=== PATIENT | female | born 1965 | race Caucasian/White ===

== ENCOUNTER 2018-07-15 09:59 | Emergency (ER) | payer OTHER ==
[2018-07-15 10:15] VITALS: O2SAT 99
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
[2018-07-15] MEDS ORDERED: Rocephin 1000 MG INJ IM ONE (10:30)
[2018-07-15] MEDS ORDERED: ZOFRAN ODT 4 MG PO ONE (10:30)
[2018-07-15] MEDS ORDERED: Hydromorphone 1 mg/ml Ampule IM ONE (10:30)
[2018-07-15] MEDS ORDERED: solu-MEDROL 125 MG IM ONE (10:31)
[2018-07-15] MEDS ORDERED: ZOFRAN ODT 4 MG ONE (10:37)
[2018-07-15] MEDS ORDERED: Hydromorphone 1 mg/ml Ampule ONE (10:37)
[2018-07-15] MEDS ORDERED: Rocephin 1000 MG INJ ONE (10:38)
[2018-07-15] MEDS ORDERED: solu-MEDROL 125 MG ONE (10:38)
[2018-07-15 11:28] VITALS: BP 137/88; PULSE 89
== END 2018-07-15 11:27 | disposition home or self-care (01) ==
LOC: ED 09:59
DX: K04.7 Periapical abscess without sinus (principal); R22.0 Localized swelling, mass and lump, head
CPT/HCPCS: 96372; 99284; J0696; J1170; J2930; Q0162

== ENCOUNTER 2019-06-07 06:04 | Day surgery (SDC) | payer OTHER ==
[2019-06-07] MEDS ORDERED: Lactated Ringers 1,000 ML IV SCH (06:30)
[2019-06-07] MEDS ORDERED: DIPRIVAN 200 MG/20 ML IV ONE ×2 (07:24→08:07)
[2019-06-07] MEDS ORDERED: Ketamine HCl 50 MG/ML ONE (07:25)
[2019-06-07 09:34] VITALS: BP 131/78; PULSE 90; O2SAT 98
--- NOTE | 2019-06-07 11:53 | OP ---
SURGERY DATE/TIME: 06/07/2019 0754 PREOPERATIVE DIAGNOSIS: Abdominal pain. POSTOPERATIVE DIAGNOSIS: Mild colitis in the ascending colon. PROCEDURE: Colonoscopy with cold forceps biopsy. SURGEON: Dr. Rothman. ANESTHESIA: Medications given by anesthesia department. HISTORY: The patient is a 53 year-old white female who presents now with abdominal pain. She has also noted change in her bowel habits. The patient had a CT scan recently to rule appendix which was essentially all negative. The patient was felt the need to have endoscopic evaluation. She was appraised of the risks of the procedure including the risk of perforation, phlebitis, untoward reaction to medication, bleeding and missed lesions. The patient verbalized her understanding and desired to have the procedure performed. DESCRIPTION OF PROCEDURE: The patient was given the medications by the anesthesia department. She had continuous pulse oximetry, ECG monitoring, intermittent blood pressure monitoring and tidal CO2 monitoring during the examination. She was placed in the left lateral decubitus position. A digital rectal examination was performed and revealed normal anal sphincter tone and no masses. The flexible Olympus pediatric colonoscope was used to intubate the rectum. A view of the colon was developed sequentially to the cecum including a short distance in the terminal ileum. Upon insertion and withdrawal was noted some erythema in the right side of the colon and this is biopsied using biopsy technique to rule out the presence of underlying colitis. The scope was removed from the patient who tolerated the procedure well and sent back to OP recovery in good condition. The prep was noted to be fair to good.
== END 2019-06-07 09:40 | disposition home or self-care (01) ==
LOC: SDC 06:04
PROVIDERS: ATTEND Family Medicine
DX: K52.9 Noninfective gastroenteritis and colitis, unspecified (principal)
CPT/HCPCS: 88305; J2704

== ENCOUNTER 2019-10-01 11:47 | Emergency (ER) | payer OTHER ==
[2019-10-01] MEDS ORDERED: BABY ASPIRIN 81 MG CHEW PO ONE (12:00)
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
[2019-10-01] MEDS ORDERED: Nitrostat 0.4 MG (ED) SL ONE ×2 (12:04→12:09)
[2019-10-01] MEDS ORDERED: BABY ASPIRIN 81 MG CHEW ONE (12:09)
[2019-10-01 12:12] VITALS: O2SAT 99
[2019-10-01] MEDS ORDERED: Zofran 4 MG/2 ML VIAL IV ONE (12:17)
[2019-10-01] MEDS ORDERED: Zofran 4 MG/2 ML VIAL ONE (12:18)
--- NOTE | 2019-10-01 12:27 | XRAY ---
Indication: Chest pain, short of breath, cough, and tachycardia. Comparison: December 05, 2017. Portable chest demonstrates new right mid to lower lung subsegmental atelectasis/scarring. Remaining heart and lungs normal. Bony thorax intact.
[2019-10-01] MEDS ORDERED: LOPRESSOR 5 MG/5 ML INJECTION IV ONE ×2 (12:30→12:56)
[2019-10-01] MEDS ORDERED: MORPHINE SULFATE 2 MG INJ IV ONE (12:34)
[2019-10-01] MEDS ORDERED: MORPHINE SULFATE 2 MG INJ ONE (12:56)
[2019-10-01 13:06] LABS: Absolute Neutrophil Ct (ANC) 5.49 (1.4-6.9); BASOPHIL % 0.3 % (0.0-0.4); Basophil (Absolute #) 0.03 (0-0.4); Eosinophil % 1.6 % (0.00-5.0); Eosinophil (Absolute #) 0.15 (0-0.5); Hematocrit 42.2 % (35-47); Hemoglobin 14.5 gm/dl (12.0-16.0); Lymphocyte (Absolute #) 3.37 (1.0-4.6); Lymphocytes % 35.3 % (24.0-44.0); Mean Cell Volume 89.4 fl (78-100); Mean Corpuscular Hemoglobin 30.7 pg (26-32); Mean Corpuscular Hgb Concent. 34.4 g/dl (32-36); Mean Platelet Volume 9.9 fl (6-9.5); Monocytes % 5.2 % (0.0-12.0); Neutrophil % 57.6 % (36.0-66.0); Platelet Count 333 K/mm3 (150-450); Red Blood Count 4.72 M/mm3 (4.1-5.4); Red Cell Distribution Width 12.9 % (11.5-14.0); White Blood Count 9.5 K/mm3 (4.0-10.5)
[2019-10-01 13:12] LABS: INR 1.03 (0.8-3.0); PROTIME 11.6 SECONDS (9.95-12.35)
[2019-10-01 13:26] LABS: ALKALINE PHOSPHATASE 126 U/L (38-126); ANION GAP 16.2 MEQ/L (5-15); BLOOD UREA NITROGEN 12 mg/dL (7-17); CHLORIDE 106 mmol/L (98-107); Calcium 9.7 mg/dL (8.4-10.2); Carbon Dioxide 26 mmol/L (22-30); Creatinine 1 0.56 mg/dL (0.52-1.04); Glucose 97 mg/dL (74-106); NT PRO BNP 34.3 pg/mL (0-900); Potassium 4.9 mmol/L (3.5-5.1); SGOT/AST 36 U/L (14-36); SGPT/ALT 18 U/L (0-35); SODIUM 143 mmol/L (137-145); Total Protein 8.8 g/dL (6.3-8.2)
[2019-10-01 13:56] VITALS: BP 132/86; PULSE 89
== END 2019-10-01 14:29 | disposition home or self-care (01) ==
LOC: ED 11:47
DX: R07.9 Chest pain, unspecified (principal); F41.9 Anxiety disorder, unspecified; G47.00 Insomnia, unspecified; K21.9 Gastro-esophageal reflux disease without esophagitis
CPT/HCPCS: 36000; 36415; 71045; 80053; 83880; 84484; 85025; 85379; 85610; 93005; 93041; 94760; 96374; 96375; 99284; 99291; J2270; J2405; A9270-GY

== ENCOUNTER 2020-03-12 18:19 | Emergency (ER) | payer OTHER ==
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
[2020-03-12] MEDS ORDERED: solu-MEDROL 125 MG IV ONE (18:59)
[2020-03-12] MEDS ORDERED: solu-MEDROL 125 MG ONE (19:04)
[2020-03-12 19:23] LABS: Absolute Neutrophil Ct (ANC) 5.75 (1.4-6.9); BASOPHIL % 0.2 % (0.0-0.4); Basophil (Absolute #) 0.02 (0-0.4); Eosinophil % 1.2 % (0.00-5.0); Eosinophil (Absolute #) 0.11 (0-0.5); Hematocrit 40.7 % (35-47); Hemoglobin 15.9 gm/dl (12.0-16.0); Lymphocytes % 29.8 % (24.0-44.0); Mean Cell Volume 88.1 fl (78-100); Mean Corpuscular Hemoglobin 34.4 pg (26-32); Mean Corpuscular Hgb Concent. 39.1 g/dl (32-36); Mean Platelet Volume 8.9 fl (7.5-11.0); Monocyte (Absolute #) 0.48 (0.0-1.3); Monocytes % 5.3 % (0.0-12.0); Neutrophil % 63.5 % (36.0-66.0); Platelet Count 344 K/mm3 (150-450); Red Blood Count 4.62 M/mm3 (4.1-5.4); Red Cell Distribution Width 12.4 % (11.5-14.0); White Blood Count 9.1 K/mm3 (4.0-10.5)
[2020-03-12 19:34] LABS: ALBUMIN 4.3 g/dL (3.5-5.0); ALKALINE PHOSPHATASE 136 U/L (38-126); ANION GAP 12.4 MEQ/L (5-15); BLOOD UREA NITROGEN 11 mg/dL (7-17); CHLORIDE 106 mmol/L (98-107); Carbon Dioxide 25 mmol/L (22-30); Creatinine 1 0.53 mg/dL (0.52-1.04); Glucose 154 mg/dL (74-106); Potassium 3.7 mmol/L (3.5-5.1); SGOT/AST 23 U/L (14-36); SGPT/ALT 19 U/L (0-35); SODIUM 140 mmol/L (137-145); Total Protein 7.6 g/dL (6.3-8.2)
[2020-03-12] MEDS ORDERED: Protonix 40MG Tablet PO ONE (20:13)
[2020-03-12] MEDS ORDERED: GI COCKTAIL 45 ML (Maalox/Lidocaine) PO ONE (20:13)
[2020-03-12] MEDS ORDERED: Protonix 40MG Tablet ONE (20:21)
[2020-03-12] MEDS ORDERED: XYLOCAINE HCl Viscous ONE (20:22)
[2020-03-12] MEDS ORDERED: MAALOX ES 30 ML UNIT DOSE ONE (20:22)
[2020-03-12 20:52] VITALS: BP 142/92; PULSE 104; O2SAT 99
--- NOTE | 2020-03-13 08:17 | XRAY ---
Indication: Short of breath. Comparison: February 23, 2020. Portable chest less inflated with new right midlung subsegmental atelectasis/scarring. Remaining heart and lungs normal again with incidental right infrahilar calcified granuloma.
== END 2020-03-12 20:54 | disposition home or self-care (01) ==
LOC: ED 18:19
DX: K21.0 Gastro-esophageal reflux disease with esophagitis (principal)
CPT/HCPCS: 36000; 36415; 71045; 80053; 84484; 85025; 93005; 96374; 99284; J2930; A9270-GY

== ENCOUNTER 2020-07-07 14:04 | Emergency (ER) | payer OTHER ==
--- NOTE | 2020-07-07 14:35 | XRAY ---
Indication: Slurred speech and left mouth/shoulder drooping. High blood pressure. Multiple contiguous axial images obtained through the head without contrast. Comparison: August 09, 2014. Normal appearing brain parenchyma, ventricles, and bony calvarium. Visualized paranasal sinuses and mastoid air cells are clear. Impression: Continued normal CT head without contrast exam.
[2020-07-07 14:37] LABS: Absolute Neutrophil Ct (ANC) 4.82 (1.4-6.9); BASOPHIL % 0.3 % (0.0-0.4); Basophil (Absolute #) 0.02 (0-0.4); Eosinophil % 1.5 % (0.00-5.0); Eosinophil (Absolute #) 0.12 (0-0.5); Hematocrit 40.8 % (35-47); Hemoglobin 13.8 gm/dl (12.0-16.0); Lymphocyte (Absolute #) 2.57 (1.0-4.6); Lymphocytes % 32.4 % (24.0-44.0); Mean Cell Volume 89.9 fl (78-100); Mean Corpuscular Hemoglobin 30.4 pg (26-32); Mean Corpuscular Hgb Concent. 33.8 g/dl (32-36); Mean Platelet Volume 9.2 fl (7.5-11.0); Monocyte (Absolute #) 0.39 (0.0-1.3); Monocytes % 4.9 % (0.0-12.0); Neutrophil % 60.9 % (36.0-66.0); Platelet Count 291 K/mm3 (150-450); Red Blood Count 4.54 M/mm3 (4.1-5.4); Red Cell Distribution Width 12.4 % (11.5-14.0); White Blood Count 7.9 K/mm3 (4.0-10.5)
[2020-07-07 14:51] LABS: BLOOD UREA NITROGEN 14 mg/dL (7-17); CHLORIDE 105 mmol/L (98-107); Carbon Dioxide 24 mmol/L (22-30); Creatinine 1 0.64 mg/dL (0.52-1.04); EST GLOMERULAR FILTRATION RATE > 60.0 ML/MIN; Glucose 155 mg/dL (74-106); Potassium 3.8 mmol/L (3.5-5.1); SODIUM 139 mmol/L (137-145)
[2020-07-07 16:01] LABS: Appearance CLEAR (CLEAR); Bilirubin NEGATIVE (NEGATIVE); Blood SMALL Ery/ul (0-5); Glucose NEGATIVE (NEGATIVE); Hyaline Casts 0-2 /LPF (0-2); Ketones NEGATIVE (NEGATIVE); Leukocyte Esterase NEGATIVE (NEGATIVE); Mucus SLIGHT /HPF (NEGATIVE); Nitrite NEGATIVE (NEGATIVE); Protein,Urine Dip NEGATIVE (Negative); Specific Gravity 1.005 (1.005-1.025); Urobilinogen NEGATIVE mg/dL (0-1); WBC 0-2 /HPF (0-5)
[2020-07-07] MEDS ORDERED: Ativan 2 MG/1 ML VIAL IV ONE (16:01)
[2020-07-07] MEDS ORDERED: Ativan 2 MG/1 ML VIAL ONE (16:05)
[2020-07-07 16:14] LABS: Amphetamine,Urine NEGATIVE (NEGATIVE); Barbiturate,Urine NEGATIVE (NEGATIVE); Benzodiazepine,Urine NEGATIVE (NEGATIVE); Cocaine,Urine NEGATIVE (NEGATIVE); Methadone,Urine NEGATIVE (NEGATIVE); Opiate,Urine NEGATIVE (NEGATIVE); PCP,Urine NEGATIVE (NEGATIVE); THC,Urine NEGATIVE (NEGATIVE)
[2020-07-07 16:21] VITALS: BP 143/89
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
[2020-07-07 17:40] VITALS: PULSE 98; O2SAT 96
--- NOTE | 2020-07-07 22:29 | XRAY ---
Indication: Neurologic deficit. Slurred speech. Left mouth/shoulder drooping. High blood pressure. Conventional contrast enhanced CTA neck performed using 100 cc Isovue 370 contrast. Two-dimensional sagittal and coronal reformatted images obtained. Additional 3-dimensional reformatted images obtained using a separate workstation. Comparison: None Aortic arch is normal in course and caliber with normal branching widely patent right brachiocephalic, left common carotid, and left subclavian arteries. Examination of the left and right right carotid circulation demonstrates widely patent common carotid, bulb, internal carotid, and external carotid arteries. Vertebral arteries are bilaterally symmetric without critical stenosis, obstruction, or AV malformation. Scattered subcentimeter submandibular/cervical lymph nodes bilaterally, none pathologically enlarged. Parotid and submandibular glands are bilaterally symmetric. Thyroid gland enhances homogeneously. Supra and infraglottic airway widely patent. C5-C6 disc space narrowing and endplate spurring. Lung apices demonstrates 2 cm and 0.5 cm right upper lobe noncalcified nodules. CTA head and CT head reported separately. Impression: 1. Normal CTA neck. 2. Two right upper lobe indeterminate noncalcified nodules. CT chest may yield further information.
--- NOTE | 2020-07-07 22:33 | XRAY ---
Indication: Neurologic deficit. Slurred speech. Left mouth/shoulder drooping. High blood pressure. Conventional contrast enhanced CTA head performed using 100 cc Isovue 370 contrast. Two-dimensional sagittal and coronal reformatted images obtained. Additional 3-dimensional reformatted images obtained using a separate workstation. Comparison: None CTA neck and CT head reported separately. Distal internal carotid arteries are bilaterally symmetric without critical stenosis, obstruction, or AV malformation. Normal carotid terminus with normal branching A1 and M1 segments bilaterally. More distal anterior cerebral, middle cerebral, anterior communicating, and posterior communicating arteries are normal in CTA appearance. Posterior circulation demonstrates basilar artery to be normal in course and caliber. Normal basilar tip with normal branching posterior cerebral and superior cerebral arteries bilaterally. Venous system unremarkable. No abnormal enhancing intra-or extra-axial mass. Impression: Normal CTA head.
== END 2020-07-07 17:56 | disposition home or self-care (01) ==
LOC: ED 14:04
DX: G45.9 Transient cerebral ischemic attack, unspecified (principal)
CPT/HCPCS: 70450; 70496; 70498; 80048; 80307; 81001; 84484; 85025; 85730; 87086; 93005; 96374; 99291; Q3014; 36000; 36415; 99284; J2060

== ENCOUNTER 2022-08-15 14:55 | Emergency (ER) | payer OTHER ==
[2022-08-15 15:19] LABS: Absolute Neutrophil Ct (ANC) 6.68 x10^3/uL (1.4-6.9); Basophil (Absolute #) 0.06 x10^3/uL (0-0.4); Eosinophil % 1.6 % (0.00-5.0); Eosinophil (Absolute #) 0.18 x10^3/uL (0-0.5); Hematocrit 43.1 % (35-47); Hemoglobin 14.8 g/dL (12.0-16.0); Lymphocyte (Absolute #) 3.94 x10^3/uL (1.0-4.6); Lymphocytes % 34.2 % (24.0-44.0); Mean Cell Volume 89.8 fL (78-100); Mean Corpuscular Hemoglobin 30.8 pg (26-32); Mean Corpuscular Hgb Concent. 34.3 g/dL (32-36); Mean Platelet Volume 9.7 fL (7.5-11.0); Monocyte (Absolute #) 0.56 x10^3/uL (0.0-1.3); Monocytes % 4.9 % (0.0-12.0); Platelet Count 390 x10^3/uL (150-450); Red Cell Distribution Width 12.6 % (11.5-14.0); White Blood Count 11.5 x10^3/uL (4.0-10.5)
[2022-08-15 15:23] LABS: Mucus SLIGHT /HPF (NEGATIVE)
[2022-08-15 15:24] LABS: Appearance CLEAR (CLEAR); Bilirubin NEGATIVE (NEGATIVE); Dipstick done @ ? MAIN LAB; Glucose NEGATIVE (NEGATIVE); Ketones NEGATIVE (NEGATIVE); Nitrite NEGATIVE (NEGATIVE); Ph 5.5 (5-6); Protein,Urine Dip NEGATIVE (Negative); RBC TRACE-LYSED Ery/ul (0-5); Specific Gravity 1.015 (1.005-1.025); Urine Cultured Indicated? NO; Urobilinogen 0.2 mg/dL (0-1)
[2022-08-15 16:19] LABS: ALBUMIN 4.3 g/dL (3.5-5.0); ALKALINE PHOSPHATASE 143 U/L (38-126); ANION GAP 11.4 MEQ/L (5-15); BLOOD UREA NITROGEN 11 mg/dL (7-17); CHLORIDE 105 mmol/L (98-107); Calcium 8.6 mg/dL (8.4-10.2); Carbon Dioxide 27 mmol/L (22-30); Creatinine 1 0.67 mg/dL (0.52-1.04); EST GLOMERULAR FILTRATION RATE > 60.0 ML/MIN; Glucose 94 mg/dL (74-106); MAGNESIUM 2.4 mg/dL (1.6-2.3); Potassium 4.3 mmol/L (3.5-5.1); SGOT/AST 21 U/L (14-36); SGPT/ALT 17 U/L (0-35); SODIUM 139 mmol/L (137-145); Total Protein 7.1 g/dL (6.3-8.2)
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
[2022-08-15 17:14] VITALS: BP 148/74; PULSE 70; O2SAT 98
== END 2022-08-15 17:10 | disposition home or self-care (01) ==
LOC: ED 14:55
DX: R40.4 Transient alteration of awareness (principal); R00.0 Tachycardia, unspecified; F41.9 Anxiety disorder, unspecified; G51.0 Bell's palsy; Z72.0 Tobacco use; Z79.899 Other long term (current) drug therapy
CPT/HCPCS: 36415; 80053; 81015; 83735; 84484; 85025; 93005; 93041; 94760; 99283

== ENCOUNTER 2023-01-08 16:02 | Emergency (ER) | payer OTHER ==
[2023-01-08 16:22] LABS: Absolute Neutrophil Ct (ANC) 5.71 x10^3/uL (1.4-6.9); BASOPHIL % 0.5 % (0.0-0.4); Basophil (Absolute #) 0.05 x10^3/uL (0-0.4); Eosinophil % 1.9 % (0.00-5.0); Eosinophil (Absolute #) 0.18 x10^3/uL (0-0.5); Hematocrit 40.9 % (35-47); Hemoglobin 13.8 g/dL (12.0-16.0); IMMATURE GRAN # 0.05 x10^3u/L (0.00-0.03); IMMATURE GRAN % 0.5 % (0.00-0.4); Lymphocyte (Absolute #) 3.08 x10^3/uL (1.0-4.6); Lymphocytes % 32.5 % (24.0-44.0); Mean Cell Volume 88.5 fL (78-100); Mean Corpuscular Hemoglobin 29.9 pg (26-32); Mean Corpuscular Hgb Concent. 33.7 g/dL (32-36); Mean Platelet Volume 8.6 fL (7.5-11.0); Monocyte (Absolute #) 0.42 x10^3/uL (0.0-1.3); Monocytes % 4.4 % (0.0-12.0); Neutrophil % 60.2 % (36.0-66.0); Platelet Count 342 x10^3/uL (150-450); Red Blood Count 4.62 x10^6/uL (4.1-5.4); Red Cell Distribution Width 11.9 % (11.5-14.0); White Blood Count 9.5 x10^3/uL (4.0-10.5)
--- NOTE | 2023-01-08 16:33 | XRAY ---
Indication: Pneumonia. Comparison: March 19, 2022 Portable chest again demonstrates minimal left base fibrosis/scarring. Remaining heart and lungs normal. Bony thorax intact. No new/acute findings.
--- NOTE | 2023-01-08 16:41 | XRAY ---
Indication: Stroke. Multiple contiguous axial images obtained through the head without contrast. Comparison: October 15, 2021 Normal appearing brain parenchyma, ventricles, and bony calvarium. Visualized paranasal sinuses and mastoid air cells are clear. Impression: Continued normal CT head without contrast exam.
[2023-01-08 16:47] LABS: ALBUMIN 4.4 g/dL (3.5-5.0); ALKALINE PHOSPHATASE 128 U/L (38-126); ANION GAP 12.2 MEQ/L (5-15); BLOOD UREA NITROGEN 12 mg/dL (7-17); CHLORIDE 105 mmol/L (98-107); Calcium 8.6 mg/dL (8.4-10.2); Carbon Dioxide 27 mmol/L (22-30); Creatinine 1 0.68 mg/dL (0.52-1.04); EST GLOMERULAR FILTRATION RATE > 60.0 ML/MIN; Glucose 129 mg/dL (74-106); NT PRO BNPII 88.4 pg/mL (<300); SGOT/AST 25 U/L (14-36); SGPT/ALT 17 U/L (0-35); SODIUM 141 mmol/L (137-145); Total Protein 7.5 g/dL (6.3-8.2)
[2023-01-08] MEDS ORDERED: Zofran 4 MG/2 ML VIAL ONE (16:50)
[2023-01-08] MEDS ORDERED: Sodium Chloride 0.9% 1000 ML 1,000 ML ONE (16:50)
[2023-01-08] MEDS: Zofran 4 MG/2 ML VIAL IV ONE (16:51)
[2023-01-08] MEDS: Sodium Chloride 0.9% 1000 ML 1,000 ML IV STA (16:51)
[2023-01-08 17:28] LABS: Appearance Clear (Clear); Bacteria None Seen /HPF (None Seen); Bilirubin Negative (Negative); Blood Negative (Negative); Epithelial Cells None Seen /HPF (None Seen); Glucose, Urine Negative (Negative); Hyaline Casts NONE SEEN /LPF (0-2); Ketones Negative (Negative); Leukocyte Esterase Negative (Negative); Nitrite Negative (Negative); Protein,Urine Dip Negative (Negative); RBC 0-2 /HPF (0-5); Specific Gravity 1.015 (1.005-1.030); WBC 0-2 /HPF (0-5)
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
[2023-01-08] MEDS ORDERED: BABY ASPIRIN 81 MG CHEW ONE (17:40)
[2023-01-08] MEDS: BABY ASPIRIN 81 MG CHEW PO ONE (17:41)
[2023-01-08 17:46] LABS: ADD URINE CULTURE? NO (NO)
[2023-01-08 18:11] VITALS: BP 141/81; PULSE 72
[2023-01-08 18:15] VITALS: O2SAT 99
== END 2023-01-08 18:13 | disposition left against medical advice (07) ==
LOC: ED 16:02
DX: R23.2 Flushing (principal); R09.89 Other specified symptoms and signs involving the circulatory and respiratory systems; Z79.899 Other long term (current) drug therapy; Z72.0 Tobacco use
CPT/HCPCS: 36000; 36415; 70450; 71045; 80053; 81001; 83880; 84484; 85025; 93005; 93041; 96374; 99284; J2405; A9270-GY